=== PATIENT | male | born 1965 | race Caucasian/White ===

== ENCOUNTER → 2016-07-26 | Outpatient (CLI) | payer MEDICARE, MEDICAID ==
[~2016-07-26] MED LIST: AGGRENOX1 CAP ORAL; ASPIRIN81 MG ORAL; CRESTOR10 M1 ORAL; DAPSONE100 MG ORAL; DEPAKOTE500 MG PO; DIVALPROEX SOD500 M2 ORAL; ESOMEPRAZOLE MA20 MG PO; FINASTERIDE5 MG ORAL; ISENTRESS400 MG ORAL; KEPPRA500 MG ORAL; KLONOPIN0.5 MG ORAL; LANSOPRAZOLE30 MG ORAL; LASIX20 M1 ORAL; LEVETIRACETAM750 MG ORAL; LYRICA75 M1 ORAL; NICODERM 21MG/241 EA TDERMAL; POTASSIUM CHLO20 ME3 PO; TESTOSTERO200 MG/1 M IM; TRUVADA1 TAB ORAL; VIMPAT200 MG PO
--- NOTE | 2016-07-28 10:15 | Diagnostic Imaging Report ---
Indication: Recurrent UTI. History of prostatitis. History of urinary stone disease Technique: Precontrast spiral acquisitions obtained through the abdomen and pelvis. IV administration nonionic contrast . Multiphasic spiral acquisitions obtained through the abdomen and pelvis. No oral contrast, per protocol. Multiplanar reconstructions were generated. Total dose length product 3987 mGycm. CTDIvol(s) 20, 8, 186, 19, 20, 19 mGy. Radiation dose was minimized using automated exposure control Comparison: None Findings: On the precontrast images, there is a 2 mm calculus within the right lower pole collecting system. No left renal calculi are demonstrated. No ureteral calculi, hydronephrosis, or hydroureter demonstrated. There are multiple left renal cysts. There are also bilateral subcentimeter low-attenuation lesions which are too small to characterize, but most likely represent simple cysts. The renal collecting systems are unremarkable. Renal parenchymal opacification is normal. The bladder is unremarkable. The prostate and seminal vesicles are unremarkable. Incidental finding is noted of multiple varicosities in the anterior pelvic subcutaneous fat, particularly to the left of midline. There is incidental finding of a small fat-containing umbilical hernia. The liver, gallbladder, bile ducts, pancreas, spleen, adrenals are unremarkable. No retroperitoneal or mesenteric mass or adenopathy. No pelvic mass or adenopathy. The included lung bases are clear except for some atelectasis on the left. The bones are unremarkable. There is an inferior vena cava filter present The distal esophagus, stomach, duodenum are unremarkable. Normal caliber small bowel. The appendix is not definitely identified, but there are no findings to suggest acute appendicitis. No evidence of diverticulosis or diverticulitis. Impression: Nonobstructing 2 mm right lower pole intrarenal calculus. Negative for ureteral calculi or hydronephrosis or other significant urinary pathology Left lower anterior pelvic wall venous varicosities. Significance uncertain but could indicate lower extremity venous insufficiency or venoocclusive disease. Incidental finding of left renal cysts. There are also bilateral subcentimeter low-attenuation lesions which are too small to characterize, most likely benign simple cysts. No further followup of these is necessary. Incidental finding small fat-containing umbilical hernia, inferior vena cava filter The CT scanner at [facility] is accredited by the [employer] and the scans are performed using protocols designed to limit radiation exposure to as low as reasonably achievable to attain images of sufficient resolution adequate for diagnostic evaluation.
== END | disposition home or self-care (01) ==
LOC: CAT 08:38
DX: N41.9 Inflammatory disease of prostate, unspecified (principal); Z87.440 Personal history of urinary (tract) infections
CPT/HCPCS: 74178; Q9967